=== PATIENT | male | born 1935 | race Caucasian/White ===

== ENCOUNTER 2025-03-03 13:20 | Emergency (ER) | payer MEDICARE ==
[~2025-03-03] VITALS: Ht 172.7 cm; Wt 78.0 kg
--- NOTE | 2025-03-03 13:50 | Physician Documentation ---
History of Present Illness ~ Chief Complaint: Constipation Stated Complaint: BOWEL OBSTRUCTION Time Seen by MD: 13:31 HPI 89 years old male with history of neurocognitive disorders with Lewy body dementia, chronic pain, hypothyroidism, hypertension brought to the ED from [facility] due to constipation. Last bowel movement was six days ago, patient has history of dementia very poor historian can not provide information, unknown passing gas. She complaining generalized abdominal pain, no nausea vomiting reported. Patient had history of chronic pain and is taking [place] daily in the nursing facility. Date: Mar 03, 2025 Time: 16:03 Additional note by Ric Mendez DO: I took over the care of this patient from previous physician. I reviewed any previous notes available, obtain my own history, review of systems and physical examination was performed by myself. Unfortunately the history is not obtainable from the patient. Per EMS, brought in for evaluation of constipation with a large bowel movement six days ago because he has been taking opioids. It is rather obvious the patient is passing gas. Medication Reconciliation Allergies: Coded Allergies: levofloxacin (Verified Allergy, Unknown, UNKNOWN, 03/03/25) Past Medical History Past Medical History: Dementia, Hypertension, Hypothyroidism, Chronic Pain Review of Systems ROS The history of present illness included a review of system, which yielded relevant positives and negatives Physical Exam Vital Signs: Temperature: 98.4, Source: Axillary, Heart Rate: 73, Respiratory Rate: 16, BP: 143/67, Pulse Oximetry: 95, Weight: 78.000 Oxygen Flow Rate: 0 Physical Exam General: Awake oriented to person HEENT: Conjunctiva pale, Sclera clear, Mucus Membranes dry Neck: Supple without masses and tenderness. Resp: Lungs clear to auscultation bilaterally. Heart: Regular Rate and rhythm, normal S1 and S2 Abdomen: Soft, mild tenderness in upper abdomen, hypoactive BS. No guarding or rebound. Extremities: No cyanosis,clubbing or edema. Skin: Warm and Dry. Neurological: Speech is clear, oriented to person only, no focal neurological deficit Progress Progress Note Labs reviewed showed leukocytosis with left shift and normocytic hypochromic anemia Waiting for CT scan results Sign out to Dr. Mendez Results/Orders Results/Orders Orders - RIC MENDEZ DO Ct Abdomen Pelvis (03/03/25 14:04) Medications Received in ER Medications (Trade) Dose Ordered Sig/Ethan Route PRN Reason Start Time Stop Time Status Last Admin Dose Admin Sodium Chloride 1,000 ml @ 1,000 mls/hr Q1H ONCE IVB 03/03/25 14:10 03/03/25 15:09 DC 03/03/25 14:57 1,000 MLS/HR Vital Signs 03/03/25 03/03/25 03/03/25 13:36 14:05 15:44 Temp 98.4 98.4 98.4 Pulse 73 70 79 Resp 16 18 18 B/P (MAP) 143/67 118/52 (74) 139/72 (94) Pulse Ox 95 92 97 O2 Flow Rate 0 0 0 Laboratory Tests Test 03/03/25 13:27 White Blood Count 13.2 H Red Blood Count 4.15 L Hemoglobin 11.3 L Hematocrit 34.4 L Mean Corpuscular Volume 82.9 Mean Corpuscular Hemoglobin 27.2 Mean Corpuscular Hemoglobin Concent 32.8 L Red Cell Distribution Width 16.4 H Platelet Count 298 Mean Platelet Volume 8.5 Neutrophils (%) (Auto) 89.5 H Lymphocytes (%) (Auto) 5.6 L Monocytes (%) (Auto) 4.4 Eosinophils (%) (Auto) 0.2 Basophils (%) (Auto) 0.3 Neutrophils # (Auto) 11.8 H Lymphocytes # (Auto) 0.7 L Monocytes # (Auto) 0.6 Eosinophils # (Auto) 0.0 Basophils # (Auto) 0.0 CBC Comment Sodium Level 136 Potassium Level 4.8 Chloride Level 104 Carbon Dioxide Level 23.2 L Anion Gap 9 Blood Urea Nitrogen 29 H Creatinine 1.43 H Estimated GFR/1.73 m2 47 BUN/Creatinine Ratio 20.3 H Glucose Level 192 H Calcium Level 8.5 Total Bilirubin 0.4 Aspartate Amino Transf (AST/SGOT) 34 Alanine Aminotransferase (ALT/SGPT) 22 Alkaline Phosphatase 71 Troponin I High Sensitivity 7 Total Protein 7.8 Albumin 3.2 L Globulin 4.6 H Albumin/Globulin Ratio 0.7 L Lipase 41 Chemistry Comments EKG/XRAY/CT/US/VASC/MRI EKG : Additional Comment EKG: rate 70, low voltage, normal axis, sinus rhythm, no ST changes Medical Decision Making Findings 89 years old male with history of neurocognitive disorder lives body dementia, hypothyroidism brought from [facility] due to constipation. They reported patient did not have any bowel movement over last six days. Differential diagnosis including but not limited to: The patient/fecal impaction, bowel obstruction, diverticulitis, biliary colic or acute cholecystitis, peptic ulcer disease, gastritis, urinary tract infection, pyelonephritis, colorectal cancer Diff Dx GI Bleed:Consideration: Include: Diverticulosis, Diverticulitis, Gastritis, PUD Diff Dx Pain:Considerations: Include: Angina/AL, Bowel obstruction, Constipation, Hernia, Urinary tract infection Diff Dx N/V/D:Considerations: Include: Gastroenteritis, Impaction Diff Dx Rectal:Considerations: Include: Other Departure Disposition: HOME / SELF CARE / HOMELESS Impression: Primary Impression: Constipation Condition: Improved Discharge Instructions: Constipation, Adult Additional Instructions: Patient has a spontaneous bowel movement, continues to pass flatus. His abdomen is benign. He has constipation has a resolved. Note to the facility: If you are administering opioid medications to this patient, please make sure to administer appropriate stool softeners. Please consult you were facility physician for appropriate prescriptions for this patient. Referrals: NO PRIMARY CARE PROVIDER (PCP) Education Educated: Other Educated regarding: diagnosis, treatment, prognosis, need for follow up Additional Comment Seen with PA/AGRICULTURE INSTRUCTOR This is an attending supervisory note for the resident of record. I have personally participated in care of this patient, has been present during critical and/or tejada portions of the patient's service, participated in the evaluation, and provided major portion of medical decision-making, independently interpreted imaging and laboratory studies and participated in disposition of this patient. Facility Status: ED Holds, [facility] process The plan was discussed with the patient, who demonstrates clear understanding of the plan and is in agreement with the plan unless otherwise noted in the chart. All questions have been answered, all concerns were addressed unless otherwise documented. I was available throughout their ED stay for frequent reassessment and questions. Differential Diagnoses (considered and possible or likely): [Differential diagnosis considered includes acute appendicitis, acute cholecystitis, pancreatitis, gastritis, PUD, diverticulitis, mesenteric ischemia, abdominal aortic aneurysm, bowel obstruction, enteritis, colitis, fecal impaction, volvulus, IBS, inflammatory bowel disease, specific food intolerance, peritonitis, perforated viscous, malignancy, UTI, abscess, and abdominal pain NOS. History, physical exam, and workup exclude many of the more serious causes listed above. ] ??Differential Diagnoses (considered and unlikely, not requiring evaluation currently): [See above] MDM Data Please see HPI for the following: Independent Historians and external Records Review. Historian: EMS, record review Independent Historians: ?[See above] Medication Management: [Reviewed medication list] Social History and determinants: [Reviewed] Please see the body of the note for the following: Any independent interpretations of ECG, imaging studies. All vitals signs/haemodynamics, ordered tests were independently reviewed and interpreted by myself. Nursing triage complaint and vitals reviewed, additional nursing notes were reviewed as available and I agree unless otherwise noted or documented in contradiction in the chart Vital Signs: Independently reviewed Labs: Independently interpreted Imaging: Independently interpreted Old Medical Records: Independently reviewed, see HPI for relevant summary and information Pulse Oximetry: [96%] interpreted as [normal on room air] by me [Propulsion Generator Repairer: [Regular Rate, Regular rhythm, no ectopy, NSR] reviewed and interpreted by me] Additionally notably showing: [Hemodynamics reviewed. The patient isn't febrile, not tachycardic, no evidence of hypotension or respiratory distress. CBC shows minimal leukocytosis of 13.2, minimal anemia of 11, normal platelets, 89% neutrophilic predominance. Metabolic panel shows CKD versus TOM, elevated glucose. Lipase is normal.] Tests considered but not ordered include: [Advanced imaging of the abdomen has been considerably but turns out that the gentleman has a very large bowel movement and his constipation have resolved. The imaging no longer necessary.] Social Determinants of Health Impact: Patient was [facility] [place] to healthcare due to below par ratio of patient to medical providers. [] Comorbid Conditions Impacting Present Evaluation and Care/Treatment: [] Management Discussions with other Healthcare Providers: [] Treatment and Disposition Medication Management (Given or considered): [Relistor has been considerably the patient has a spontaneous bowel movement]. See EMR for details Consideration for Hospitalization/Escalation/Deescalation of Care: Admission for observation has been considered, [however the patient is able to tolerate p.o., their symptoms are controlled, they are able to rely on oral medications, and their chief complaint/diagnosis can be managed on outpatient basis.] ?ED Course:?[Date: Mar 03, 2025 Time: 16:06 the patient had a spontaneous very large bowel movement. He is passing gas. His abdomen is benign, there was no guarding or rebound. At this point I do not believe that he needs advanced imaging, he can be safely discharged to his facility. ] ?Shared decision making:?[Patient is hemodynamically stable for discharge home with follow with their primary care provider. [ ] Specific and cautious return precautions provided and discussed with full understanding. Any incidental findings were also discussed and follow up recommendations given. [] All questions answered. Patient/family were able to verbalize back return precautions. Patient/family agree to plan. Copies of imaging and laboratory studies were provided.] Code status:?FULL Please see the full Electronic Medical Record for full details of nursing documentation, medications list, other records of complete past medical history and conditions, vital signs, laboratory studies, and any radiologic study interpretations by radiologists. Portions of this note were completed using [employer] dictation software and as a result there may exist minor errors in spelling. I have reviewed elements of past family and social history and agree as included in note. Signature Scribe Signature: no Scribe Angelito Kwon MD, internal medicine resident Attestation: The resident MD attestation: I examined the patient and discussed the plan with attending physician Dr Mendez Date: Mar 03, 2025 Time: 16:08 This note accurately reflects clinical decisions, work performed by myself, Ric Mendez, ANGELITO JAMES, RES Mar 03, 2025 13:50 RIC MENDEZ DO Mar 03, 2025 16:08
--- NOTE | 2025-03-03 14:08 | ELECTROCARDIOGRAPH REPORT ---
[facility] Test Date: 2025-03-03 Test Time: 14:06:39 Pat Name: URI DODD Department: [facility]- Patient ID: [facility]-[id number] Room: Gender: M Tour Agent: : [id number] Requested By: ANGELITO PADILLA Order Number: [id number] Reading MD: Dr. Santosh Gonzalez Measurements Intervals [place] Rate: 70 P: 39 ND: 155 QRS: 51 QRSD: 103 T: 52 QT: 414 QTc: 447 Interpretive Statements Atrial-paced complexes Borderline low voltage, extremity leads Electronically Signed On 03-03-2025 20:39:[address] Santosh Gonzalez Please click the below link to view image of tracing.
[2025-03-03 14:16] LABS: MEAN PLATELET VOLUME 8.5 FL (7.4-10.4); RED CELL DISTRIBUTION WIDTH 16.4 % (11.5-14.5)
[2025-03-03 14:27] LABS: CREATININE 1.43 MG/DL (0.60-1.10); TOTAL CARBON DIOXIDE 23.2 MMOL/L (24-32); eCRCL 35 ML/MIN; eGFR 47 ML/MIN
[2025-03-03] MEDS ORDERED: iohexol 300mg/ml 100ml inj. ONE (14:33)
[2025-03-03] MEDS: normal saline 1000ml 1,000 ML IVB ONE (14:57)
--- NOTE | 2025-03-03 15:05 | RADIOLOGY REPORT ---
EXAM: DI CHEST,SINGLE VIEW HISTORY: abd/chest pain COMPARISON: No comparison studies are available. TECHNIQUE: Portable upright AP view of the chest was performed. FINDINGS: No pneumothorax, consolidative infiltrates, or pulmonary edema. The heart is borderline enlarged. The aortic arch is calcific. IMPRESSION: No acute intrathoracic process.
[2025-03-03 15:44] VITALS: TEMP 98.4
[2025-03-03 18:38] VITALS: BP 136/80; PULSE 84; RESP 16; O2SAT 98
== END 2025-03-03 18:41 | disposition home or self-care (01) ==
LOC: ER 13:21
DX: K59.00 Constipation, unspecified (principal); G89.29 Other chronic pain; E03.9 Hypothyroidism, unspecified; I10 Essential (primary) hypertension; Z88.1 Allergy status to other antibiotic agents; Z95.0 Presence of cardiac pacemaker
CPT/HCPCS: 36415; 71045; 80053; 83690; 84484; 85025; 93005; 96360; 99285; J7030; Q9967